=== PATIENT | female | born 1955 | race Caucasian/White ===

== ENCOUNTER 2018-07-14 15:22 | Emergency (ER) | payer OTHER, SELFPAY ==
[2018-07-14] MEDS ORDERED: HYDROcodone/Acetaminophen 5/325 mg Tablet ONE (16:03)
[2018-07-14] MEDS ORDERED: Acetaminophen 325 MG TAB ONE (16:03)
[2018-07-14] MEDS ORDERED: Ibuprofen 800 MG TAB ONE (16:03)
--- NOTE | 2018-07-14 16:23 | RAD ---
XR Ankle Lt 3 View STANDARD History: [Fall with injury and pain] Comparison: There is a Findings: Periosteal avulsion of the distal aspect of the medial tibia. Small fracture of the tip of the medial malleolus. There is a distal fibular fracture extending above the level of the syndesmosis. Posterior malleolar fracture is present. Impression: 1. Periosteal avulsion at the distal aspect of the medial margin of distal tibia, likely a retinacula r avulsion. 2. Small avulsive fracture of the medial malleolus as well as a distal fibular fracture above and thr ough the syndesmosis along with a nondisplaced posterior malleolar fracture.
--- NOTE | 2018-07-14 16:29 | RAD ---
LEFT TIBIA AND FIBULA TWO VIEWS: History: Injury from a fall. FINDINGS: There is some linear artifact on the AP radiograph. Essentially nondisplaced oblique fracture through the distal fibula metadiaphysis. Linear thin area of bone density adjacent to the medial tibial meta physis of uncertain etiology or significance. Proximal tibia and fibula are intact. IMPRESSION: Essentially nondisplaced oblique fracture through the distal fibular metadiaphysis. Soft tissue swell ing. Thin linear bone density opacity adjacent to the medial distal tibia of uncertain etiology or si gnificance. POS: [facility]
--- NOTE | 2018-07-14 16:30 | RAD ---
EXAM: RIGHT ANKLE THREE VIEWS: History: Injury from a fall. FINDINGS: Lateral soft tissue swelling. No acute fracture or dislocation. Degenerative changes. IMPRESSION: Lateral soft tissue swelling without acute fracture or dislocation. POS: [facility]
== END 2018-07-14 17:25 | disposition home or self-care (01) ==
LOC: MADERS 15:22
DX: S82.52XA Displaced fracture of medial malleolus of left tibia, initial encounter for closed fracture (principal); S82.432A Displaced oblique fracture of shaft of left fibula, initial encounter for closed fracture; S93.401A Sprain of unspecified ligament of right ankle, initial encounter; M19.90 Unspecified osteoarthritis, unspecified site; K21.9 Gastro-esophageal reflux disease without esophagitis; Z87.891 Personal history of nicotine dependence; Z79.899 Other long term (current) drug therapy; Z79.82 Long term (current) use of aspirin; W10.9XXA Fall (on) (from) unspecified stairs and steps, initial encounter
CPT/HCPCS: 29515

== ENCOUNTER 2020-06-06 07:55 | Outpatient (CLI) | payer OTHER | END 2020-06-06 07:56 | disposition home or self-care (01) | LOC: MADRAD 07:55 | PROVIDERS: ATTEND Family Medicine | DX: E01.0 Iodine-deficiency related diffuse (endemic) goiter (principal); E04.2 Nontoxic multinodular goiter | CPT/HCPCS: 76536 ==

== ENCOUNTER 2020-06-06 08:44 | Outpatient (CLI) | payer OTHER | END 2020-06-06 08:45 | disposition home or self-care (01) | LOC: MADRAD 08:44 | PROVIDERS: ATTEND Family Medicine | DX: M19.041 Primary osteoarthritis, right hand (principal); M19.042 Primary osteoarthritis, left hand ==

== ENCOUNTER 2022-01-03 09:04 | Outpatient (CLI) | payer MEDICARE, OTHER | END 2022-01-03 09:05 | disposition home or self-care (01) | LOC: MADULT 09:04 | PROVIDERS: ATTEND Family Medicine | DX: E04.2 Nontoxic multinodular goiter (principal) | CPT/HCPCS: 76536 ==

== ENCOUNTER 2025-01-18 08:12 | Outpatient (CLI) | payer OTHER ==
[2025-01-18 08:47] LABS: ALT (SGPT) 29 U/L (Less than 34); AST (SGOT) 29 U/L (11-34); Albumin 4.0 g/dL (3.1-4.5); Alkaline Phosphatase 70 U/L (40-110); Anion Gap 15 mmol/L (10-20); BUN (Urea Nitrogen) 13 mg/dL (9.8-20.1); Bilirubin, Total 0.7 mg/dL (0.3-1.2); Calc. Creatinine Clearance 0 mL/min (70-130); Calcium 8.9 mg/dL (7.8-10.44); Carbon Dioxide 25 mmol/L (23-31); Chloride 106 mmol/L (98-107); Globulin 3.1 g/dL (2.4-3.5); Glucose 100 mg/dL (80-115); Potassium 3.8 mmol/L (3.5-5.1); Sodium 142 mmol/L (136-145)
[2025-01-18 16:35] LABS: Free T4 (Free Thyroxine) 0.92 ng/dL (0.70-1.48)
[2025-01-19 12:01] LABS: Thyroid Peroxidase IgG Ab 25.0 IU/mL (<25 Normal)
== END 2025-01-18 08:13 | disposition home or self-care (01) ==
LOC: MADLAB 08:12
PROVIDERS: ATTEND Family Medicine
DX: K76.89 Other specified diseases of liver (principal); E04.1 Nontoxic single thyroid nodule
CPT/HCPCS: 36415; 80053; 84439; 84443; 84481; 86376